=== PATIENT | female | born 1970 | race Caucasian/White ===

== ENCOUNTER 2020-10-09 10:01 | Emergency (ER) | payer OTHER ==
[~2020-10-09] VITALS: Ht 170.2 cm; Wt 72.0 kg
[2020-10-09 10:11] VITALS: BP 115/78
--- NOTE | 2020-10-09 10:29 | NUR ---
PT BIB EMS. PT WORKS AT [employer] IN [place]. PER REPORT VIA EMS "SHE WAS ACTING IRRACT AT WORK AROUND 0800. EMPLOYEES CALLED 911. NO ONE HAD WITNESSED HER FALL OR HIT HER HEAD OR HAVE A SZ. PT WAS AOX1 ON SCENE". UPON ARRIVAL TO ER PT TEARFUL AND UNCOOPERATIVE. AOX3. SHE DOESNT KNOW THE SITUATION. PT RESTING IN [facility]. EKG COMPLETE.
--- NOTE | 2020-10-09 10:34 | NUR ---
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 SHE WASNT ON SCENE BUT SAYS "ALL I HEARD IS SHE PASSED OUT"
--- NOTE | 2020-10-09 10:39 | NUR ---
PT 02 SAT DROPPED TO 89. PT REFUSING TO WEAR O2
--- NOTE | 2020-10-09 11:20 | NUR ---
PT RIPPED OUT IV. BLED ALL OVER ROOM. REMOVED ALL MONITORING EQUIPMENT. SAYS SHE WANTS TO GO HOME. REFUSING BLOOD DRAW. NOTIFIED AND IS BEDSIDE FOR RECHECK
--- NOTE | 2020-10-09 11:35 | NUR ---
TASK RN: DR DAVIS AT BEDSIDE. PT UNABLE TO RECALL EVENTS FROM [facility] TODAY. PT REMOVED GOWN, WANTING TO HER SHIRT. MD ASKING PT TO HAVE A REASONABLE CONVERSATION WITH HIM. PT STANDING WITH A TOP ON (THIS RN HELD A BLANKET UP) PT STATES "I'M FINE. I WANT TO GO HOME. THERE IS NOTHING WRONG WITH ME" PT REFUSING LAB DRAW AND TO GIVE URINE SPECIMAN. PT USING CELL PHONE AND CALLED "FABRICE" FABRICE TO COME AND GET PT. WHEN PT ASKED WHERE FABRICE LIVES "I DONT KNOW, WHERE IS FABRICE, WHY ISNT HE HERE?" PT THEN TEARFUL, DOESNT REPLY WHEN ASKED WHY SHE IS CRYING"
--- NOTE | 2020-10-09 11:48 | NUR ---
TASK RN: PT COMING OUT OF ROOM, "I'M LEAVING, GIVE ME MY BLOUSE, YOU CANT KEEP ME HERE" PT NOT REDIRECTABLE. PT REPEATIVE WITH "I'M LEAVING , YOU CANT KEEP ME HERE AND GIVE ME MY BLOUSE" FABRICE CALLED BY PRIMARY RN DENNIS. FABRICE APPROX 30 MIN AWAY. PT REMOVING GOWN. STANDING IN ROOM TOPLESS. PT PROVIDED WITH BLANKET TO COVER SELF. PT DOES NOT ANSWER WHEN ASKED IF SHE WOULD LIKE SOME WATER. PT RUMMAGING THROUGH BAG.
--- NOTE | 2020-10-09 12:20 | NUR ---
TASK RN: FABRICE PTS BOYFRIEND AT BEDSIDE. DR DAVIS AT BEDSIDE TO DISCUSS SITUATION WITH PT AND FABRICE.
== END 2020-10-09 12:40 | disposition home or self-care (01) ==
LOC: ED 12:34
DX: G93.40 Encephalopathy, unspecified (principal); R41.82 Altered mental status, unspecified; R94.31 Abnormal electrocardiogram [ECG] [EKG]
CPT/HCPCS: 70450; 93005; 99284